=== PATIENT | male | born 1955 | race Caucasian/White ===

== ENCOUNTER → 2021-05-31 | Outpatient (CLI) | payer MEDICARE, BC ==
[2021-05-31 14:30] LABS: HCT 44.6 % (39.6-50.0); HGB 15.3 g/dL (13.0-17.0); MCHC 34.3 g/dL (32.0-37.0); MCV 96.1 fL (80.0-97.0); Mean Platelet Volume 12.1 fL (9.5-12.2); Platelet Count 217 X 10*3/uL (140-440); RBC 4.64 X 10*6/uL (4.40-5.60); RDW 12.4 % (11.5-14.5); WBC 7.05 X 10*3/uL (4.50-10.00)
[2021-05-31 15:38] LABS: ALT 34 U/L (10-49); AST 22 U/L (14-35); Carbon Dioxide 20.5 mmol/L (20.0-27.5); Chloride 104 mmol/L (96-109); Chol/HDL Ratio 5.01 Ratio; LDL Cholesterol,Calculated 147.8 mg/dL (0.0-131.0); Potassium 5.2 mmol/L (3.5-5.5); Sodium 138 mmol/L (135-145)
== END | disposition home or self-care (01) ==
LOC: LABWHC1 10:06
PROVIDERS: ATTEND Internal Medicine Cardiovascular Disease
DX: I48.11 Longstanding persistent atrial fibrillation (principal)
CPT/HCPCS: 36415; 80051; 80061; 84443; 84450; 84460; 85027

== ENCOUNTER 2021-06-12 06:11 | Day surgery (SDC) | payer BC, MEDICARE ==
[2021-06-09 08:53] VITALS: BMI 34.4
[~2021-06-12 06:11] MED LIST: ALPRAZolam 0.25 MG TAB PO PRN; ALPRAZolam 0.5 MG TAB PO PRN; ASPIRIN 325 MG TAB PO STA; ATORVASTATIN 80 MG TAB PO STA; HEPARIN SODIUM,PORCINE 10,000 UNIT in SODIUM CHLORIDE 0.9% 1,000 ML IRRIGATION PRN; HEPARIN SODIUM,PORCINE 2,500 UNIT in SODIUM CHLORIDE 0.9% 250 ML IRRIGATION PRN; NITROGLYCERIN SL TABS 0.4 MG TAB SUBLINGUAL PRN; SODIUM CHLORIDE 0.9% 1,000 ML in EMPTY BAG 1 BAG IV SCH
[2021-06-12] MEDS ORDERED: SODIUM CHLORIDE 0.9% 1,000 ML IV ONE (06:42)
[2021-06-12 06:57] VITALS: RESP 16; TEMP 98.6
[2021-06-12 07:18] LABS: Calcium 9.8 mg/dL (8.4-10.2); Potassium 4.7 mmol/L (3.5-5.1)
[2021-06-12] MEDS ORDERED: .fentaNYL (PF) 50 MCG/ML 2 ML AMP IV ONE (07:30)
[2021-06-12] MEDS ORDERED: MIDAZOLAM 2 MG/2 ML VIAL IV ONE (07:30)
[2021-06-12] MEDS ORDERED: LIDOCAINE 1% INJ 10MG/ML (20 ML MDV) SQ ONE (07:35)
[2021-06-12] MEDS ORDERED: VERAPAMIL SYRINGE (5 MG/10 ML) INTRAARTER ONE (07:36)
[2021-06-12] MEDS: HEPARIN SODIUM 1,000 UN/ML (10ML VL) IV ONE ×3 (07:39→08:12)
[2021-06-12] MEDS ORDERED: NITROGLYCERIN 1000MCG/10ML SYRINGE INTRACORON ONE (08:18)
[2021-06-12] MEDS ORDERED: IOPAMIDOL-370 125ML BTL INJ ONE (08:29)
[2021-06-12] MEDS ORDERED: IOPAMIDOL-370 100ML BTL INJ ONE (08:40)
[2021-06-12] MEDS ORDERED: BACLOFEN 10 MG TAB PO PRN (08:45)
[2021-06-12] MEDS ORDERED: HYDROcodone/APAP 7.5-325MG 1 EACH TAB PO PRN (08:45)
[2021-06-12] MEDS ORDERED: ATROPINE SULFATE 0.1 MG/ML 10ML SYRINGE IV PRN (08:46)
[2021-06-12] MEDS ORDERED: RX INFO: IV CONTRAST WAS GIVEN 1 EACH MISC MISCELLANE PRN (08:46)
[2021-06-12] MEDS ORDERED: NITROGLYCERIN SL TABS 0.4 MG TAB SUBLINGUAL PRN (08:46)
[2021-06-12] MEDS ORDERED: ZOLPIDEM 5 MG TAB PO PRN (08:46)
[2021-06-12] MEDS ORDERED: MAG HYDROX/AL HYDROX/SIMETH 30 ML CUP PO PRN (08:46)
[2021-06-12] MEDS ORDERED: CLOPIDOGREL 75 MG TAB PO ONE (08:47)
[2021-06-12] MEDS ORDERED: METOPROLOL SUCCINATE (ER) 50 MG TAB.ER.24H PO SCH (09:00)
[2021-06-12] MEDS ORDERED: NON FORMULARY DRUG (Potassium Gluconate [Potassium Gluconate Er] 99 MG Tablet) PO SCH (09:00)
[2021-06-12] MEDS ORDERED: MULTIVITAMINS, THERA 1 EACH TAB PO SCH (09:00)
[2021-06-12] MEDS ORDERED: ASPIRIN 81 MG PO SCH (09:00)
[2021-06-12] MEDS ORDERED: FLUoxetine HCL 20 MG CAP PO SCH (09:00)
[2021-06-12] MEDS ORDERED: NON FORMULARY DRUG (Magnesium [Magnesium] 200 MG Tablet) PO SCH (09:00)
[2021-06-12] MEDS ORDERED: SODIUM CHLORIDE 0.9% 1,000 ML IV SCH (09:00)
--- NOTE | 2021-06-12 10:15 | PTCA ---
PERCUTANEOUSTRANS CORORONARY ANGIOGRAPHY DATE OF SERVICE: 06/12/2021 PERFORMING PHYSICIAN: Chapincito Flores M.D. PROCEDURE PERFORMED: Stenting of the PLV branch of the RCA using a 2.5 x 15 mm Xience drug-eluting stent with an excellent angiographic result and reduction of stenosis from 90% to 0%. INDICATION: Cardiomyopathy in this 65-year-old gentleman who underwent a heart catheterization and was found to have critical disease involving the PLV branch of the RCA by Dr. Cordero. APPROACH: Right radial artery. COMPLICATIONS: None. LEVEL OF SEDATION: Moderate, with sedation length of 32 minutes. PROCEDURE DESCRIPTION: Please refer to the diagnostic heart catheterization that was performed by Dr. Cordero earlier today. Anticoagulation was initiated using heparin with continuous ACT monitoring throughout the procedure. Subsequently I did engage the RCA using JR4 guiding catheter. I did wire the RCA using a run-through wire. After that I did balloon angioplasty using a 2.0 x 12 mm balloon before I deployed a 2.5 x 15 mm Xience drug-eluting stent where the stent was positioned under fluoroscopic guidance and deployed under its nominal pressure. The following angiogram showed excellent angiographic results and the procedure was completed without any complication. POST-PROCEDURE MANAGEMENT: 1. Dual anti-platelet therapy. 2. Risk factor modifications. 3. Follow up with the patient. MMODL / IJN: [id number] /
[2021-06-12 12:00] VITALS: PULSE 70
[2021-06-12 16:14] VITALS: BP 128/72
[2021-06-12] MEDS ORDERED: RIVAROXABAN 15 MG TAB PO SCH (17:30)
[2021-06-12] MEDS ORDERED: ATORVASTATIN 80 MG TAB PO SCH (21:00)
[2021-06-13] MEDS ORDERED: CLOPIDOGREL 75 MG TAB PO SCH (09:00)
--- NOTE | 2021-06-20 15:52 | CC ---
CARDIAC CATHETERIZATION REPORT INDICATION: Cardiomyopathy. PROCEDURE NOTE: After obtaining informed consent, left heart catheterization and coronary angiogram were performed via the right radial artery using size 4 right Tristan and left Tristan catheters. Patient tolerated the procedure well without any obvious immediate complications. The right radial artery access was obtained using Seldinger technique with a micropuncture needle with standard precautions. Glidewire and catheters were floated into the ascending aorta under fluoroscopic guidance. Catheters were exchanged in the ascending aorta. Patient received 5 mg of verapamil and 4000 units of heparin. Procedure was completed uneventfully. FINDINGS: HEMODYNAMICS: Left ventricular end-diastolic pressure is 14 mm. There is no significant gradient across the aortic valve. LEFT VENTRICULOGRAM: Left ventriculogram was not performed. ANGIOGRAPHIC DATA: RIGHT CORONARY ARTERY: Right coronary artery is a large dominant vessel, shows a focal 80% to 90% stenosis involving the PLV branch. Circumflex coronary artery is a nondominant vessel and is free of significant disease. Left main appears calcified but is free of disease. Mid LAD shows an atherosclerotic plaque that is irregular and ulcerated, which is no more than 50%. CONCLUSIONS: Stenosis of 80% to 90% involving PLV branch; 50% stenosis involving mid LAD. PLAN: Patient will undergo angioplasty with stent placement of PLV. He received moderate conscious sedation. Total sedation time was 19 minutes. MMODL / IJN: [id number] /
== END 2021-06-12 14:30 | disposition home or self-care (01) ==
LOC: CATHCVL 06:11
PROVIDERS: ATTEND Internal Medicine Cardiovascular Disease
DX: I25.10 Atherosclerotic heart disease of native coronary artery without angina pectoris (principal); I10 Essential (primary) hypertension; Z20.822 Contact with and (suspected) exposure to COVID-19; Z82.49 Family history of ischemic heart disease and other diseases of the circulatory system; Z87.891 Personal history of nicotine dependence; Z79.01 Long term (current) use of anticoagulants; Z79.899 Other long term (current) drug therapy
CPT/HCPCS: 93458; 80048; 87635; C9600; C1887 ×3; C1894; C1725; C1769; C1874; J2250; J2001; J3010; J1644; Q9967 ×2

== ENCOUNTER → 2021-07-11 | Day surgery (SDC) | payer BC, MEDICARE ==
[2021-07-04 15:13] VITALS: BMI 34.4
[~2021-07-11] MED LIST changes: -ALPRAZolam 0.25 MG TAB PO PRN; -ALPRAZolam 0.5 MG TAB PO PRN; -ASPIRIN 325 MG TAB PO STA; -ATORVASTATIN 80 MG TAB PO STA; -HEPARIN SODIUM,PORCINE 10,000 UNIT in SODIUM CHLORIDE 0.9% 1,000 ML IRRIGATION PRN; -HEPARIN SODIUM,PORCINE 2,500 UNIT in SODIUM CHLORIDE 0.9% 250 ML IRRIGATION PRN; +LACTATED RINGERS 1,000 ML IV SCH; +LIDOCAINE 1% INJ 10MG/ML (20 ML MDV) ONE; -NITROGLYCERIN SL TABS 0.4 MG TAB SUBLINGUAL PRN; +PROPOFOL 10 MG/ML 20 ML VIAL IV ONE; +SODIUM CHLORIDE 0.9% 1,000 ML IV SCH; -SODIUM CHLORIDE 0.9% 1,000 ML in EMPTY BAG 1 BAG IV SCH
[2021-07-11 07:05] VITALS: TEMP 97.7
[2021-07-11 08:56] VITALS: RESP 16
--- NOTE | 2021-07-11 12:40 | ECHOT ---
TRANSESOPHAGEAL ECHOCARDIOGRAM PROCEDURES: 1. ANNAMARIA. 2. Cardioversion. INDICATION: 1. Persistent atrial fibrillation. PROCEDURE NOTE: After obtaining informed consent, transesophageal echocardiogram was performed in left lateral position using an Omni plane probe. Local and IV sedation were obtained by the plate grainer apprentice. The patient tolerated the procedure well without any obvious immediate complications. FINDINGS: 1. There is no intracardiac thrombus within the left atrial appendage, left atrium, right atrium, right ventricle or left ventricle. 2. Left atrium appears enlarged. 3. Right atrium and right ventricle appear mildly enlarged. 4. Interatrial septum: There is no evidence of [id number]-bk-bsfcf shunt by color-flow Doppler or vnuap-yh-bfrl shunt by agitated saline contrast study. 5. Mitral valve shows mild central mitral regurgitation. 6. Tricuspid valve shows mild tricuspid regurgitation. 7. Aorta is not aneurysmally dilated. 8. Left ventricle appears mildly enlarged, shows diffuse global hypokinesis with moderate to severe LV systolic dysfunction. CONCLUSIONS: 1. No intracardiac thrombus. 2. Mild mitral regurgitation. 3. Cardiomyopathy with moderate to severe LV dysfunction. PLAN: The patient will undergo cardioversion. MMODL / IJN: [id number] /
--- NOTE | 2021-07-11 13:01 | PCN ---
PROCEDURE NOTE CARDIOVERSION: INDICATION: Persistent atrial fibrillation. After making sure that the patient is adequately anticoagulated with Xarelto ensuring that there is no intracardiac thrombus with the transesophageal echo, the patient underwent electrical cardioversion with synchronized DC current. I made two attempts initially with 100 joules and subsequently with 150 joules. He converted to sinus rhythm and stayed in sinus rhythm. He will continue the Xarelto and I will review his medications and cut back on the AV clement blockers. MMDANIELLA / SHANAN: [id number] /
[2021-07-11 15:32] VITALS: BP 145/72; PULSE 42
== END ==
LOC: CATHCVL 06:10
PROVIDERS: ATTEND Internal Medicine Cardiovascular Disease
DX: I48.19 Other persistent atrial fibrillation (principal); I42.0 Dilated cardiomyopathy; I08.1 Rheumatic disorders of both mitral and tricuspid valves; I25.10 Atherosclerotic heart disease of native coronary artery without angina pectoris; I10 Essential (primary) hypertension; E78.2 Mixed hyperlipidemia; Z20.822 Contact with and (suspected) exposure to COVID-19; Z95.5 Presence of coronary angioplasty implant and graft; Z87.891 Personal history of nicotine dependence; M19.90 Unspecified osteoarthritis, unspecified site; Z82.49 Family history of ischemic heart disease and other diseases of the circulatory system; Z90.49 Acquired absence of other specified parts of digestive tract; Z88.8 Allergy status to other drugs, medicaments and biological substances; Z79.01 Long term (current) use of anticoagulants; Z79.02 Long term (current) use of antithrombotics/antiplatelets; Z79.899 Other long term (current) drug therapy
CPT/HCPCS: 93312; 93325; 92960; 87635; J2001; J2704; 93320

== ENCOUNTER → 2023-08-13 | Outpatient (CLI) | payer BC, MEDICARE ==
[2023-08-13 11:30] LABS: INR 1.1 (<1.2); Partial Thromboplastin Time 31.7 sec (22.0-30.0); Prothrombin Time 12.3 sec (10.0-12.5)
[2023-08-13 15:22] LABS: HCT 38.5 % (39.6-50.0); HGB 12.1 g/dL (13.0-17.0); MCH 30.3 pg (27.0-32.0); MCHC 31.4 g/dL (32.0-37.0); MCV 96.3 FL (80.0-97.0); Mean Platelet Volume 10.7 FL (9.5-12.2); NRBC Per 100 WBC 0 X 10*3/uL (0.00-0.01); Platelet Count 209 X 10*3/uL (140-440); RDW 15.8 % (11.5-14.5); WBC 6.72 X 10*3/uL (4.50-10.00)
[2023-08-13 15:45] LABS: ALT 52 U/L (10-49); AST 26 U/L (14-35); Alkaline Phosphatase 75 U/L (41-126); BUN/Creat Ratio 19.38 Ratio (12.00-20.00); Blood Urea Nitrogen 40.7 mg/dL (9.0-27.0); Calcium 9.2 mg/dL (8.7-10.3); Carbon Dioxide 22.4 mmol/L (21.6-31.8); Chloride 108 mmol/L (96-109); Globulin 2.5 g/dL (1.6-3.3); Glucose 99 mg/dL (70-110); Potassium 5.2 mmol/L (3.5-5.5); Sodium 140 mmol/L (135-145); Total Bilirubin 0.3 mg/dL (0.3-1.2); Total Protein 6.5 g/dL (6.2-8.2)
== END | disposition home or self-care (01) ==
LOC: LABPAT 10:39
PROVIDERS: ATTEND Orthopaedic Surgery
DX: Z01.812 Encounter for preprocedural laboratory examination (principal); Z22.322 Carrier or suspected carrier of Methicillin resistant Staphylococcus aureus; M17.12 Unilateral primary osteoarthritis, left knee
CPT/HCPCS: 80053; 85027; 85610; 85730; 87070

== ENCOUNTER 2023-09-10 07:43 | Day surgery (SDC) | payer BC, MEDICARE ==
[2023-09-04 08:47] VITALS: BMI 34.0
[~2023-09-10 07:43] MED LIST changes: +HYDROmorphone 0.5 MG/0.5 ML SYRINGE IVP PRN; -LACTATED RINGERS 1,000 ML IV SCH; +LIDOCAINE 1% (10MG/ML) FOR IV START INTRADERMA PRN; -LIDOCAINE 1% INJ 10MG/ML (20 ML MDV) ONE; -PROPOFOL 10 MG/ML 20 ML VIAL IV ONE; -SODIUM CHLORIDE 0.9% 1,000 ML IV SCH; +TRANEXAMIC 1,000 MG/100ML-NACL 1,000 MG in SALINE 1 100ML.BAG IVPB PRN
[2023-09-10] MEDS: LACTATED RINGERS 1,000 ML IV SCH ×2 (08:17→20:41)
[2023-09-10] MEDS: ACETAMINOPHEN TAB 500 MG TAB PO PRN (08:50)
[2023-09-10] MEDS: MELOXICAM 7.5 MG TAB PO PRN (08:51)
[2023-09-10] MEDS: GABAPENTIN 300 MG CAP PO PRN (08:51)
[2023-09-10] MEDS: ONDANSETRON 4 MG/2 ML VIAL IVP ONE (09:05)
[2023-09-10] MEDS: DEXAMETHASONE SOD PHOSPHATE 4 MG/ML 1 ML VIAL IV ONE (09:05)
[2023-09-10] MEDS: MIDAZOLAM 2 MG/2 ML VIAL IV PRN (09:06)
[2023-09-10] MEDS: fentaNYL (PF) 50 MCG/ML 2 ML AMP IVP ONE (09:07)
[2023-09-10] MEDS ORDERED: TRANEXAMIC 1,000 MG/100ML-NACL PREMIX BAG ONE (09:52)
[2023-09-10] MEDS ORDERED: MIDAZOLAM 2 MG/2 ML VIAL ONE (09:52)
[2023-09-10] MEDS ORDERED: PHENYLEPHRINE 10 MG/ML VIAL ONE (09:52)
[2023-09-10] MEDS ORDERED: fentaNYL (PF) 50 MCG/ML 2 ML AMP ONE (09:52)
[2023-09-10] MEDS ORDERED: ROPIVACAINE 5 MG/ML 30 ML VIAL ONE (09:52)
[2023-09-10] MEDS ORDERED: SODIUM CHLORIDE 0.9% (PF) 10 ML VIAL ONE (09:52)
[2023-09-10] MEDS ORDERED: LIDOCAINE 1% INJ 10MG/ML (20 ML MDV) ONE (09:52)
[2023-09-10] MEDS ORDERED: PROPOFOL 10 MG/ML 20 ML VIAL IV ONE (09:52)
[2023-09-10] MEDS: LACTATED RINGERS 1,000 ML IV ONE (10:34)
--- NOTE | 2023-09-10 11:06 | P.OP ---
Date of Procedure: 09/10/23 Preoperative Diagnosis: Severe osteoarthritis left knee Postoperative Diagnosis: Severe osteoarthritis left knee Procedure(s) Performed: Left total knee arthroplasty Implants: [employer]hew Journey II CR Oxinium cruciate retaining femoral component size 7, left [employer] Journey nonporous tibial baseplate size 6, left [employer] Journey II, XLPE Deep Dished articular insert, size 9 mm, Size 5- 6, left [employer] Journey Ade II resurfacing patellar component, oval, 35 mm All components were cemented using Palacos R bone cement The articulation is Oxinium on polyethylene Anesthesia: FARHEEN Surgeon: Chidi Dickens Machine Adjuster Helper #1: Latoya Agarwal Estimated Blood Loss (ml): 40 Pathology: none sent Condition: stable Disposition: PACU Indications for Procedure: The patient's knee is end-stage, and conservative management has failed. The operation of knee replacement has been discussed at length in the office, as well as potential risks and complications. These are inclusive of, but not limited to: Infection, bleeding, scarring, discomfort, stiffness, blood vessel and nerve damage, need for further surgery, failure to relieve symptoms, persistence, recurrence, or worsening of problems, loosening, dislocation, wear, blood clot, pulmonary embolism, , gait dysfunction, stiffness, and other risks as discussed in the office. Patient elects to proceed and the consent form has been signed. Operative Findings: The operative findings are consistent with severe osteoarthritis of the left knee Description of Procedure: The patient was seen in the preoperative area, the consent was reviewed and the operative site was marked with a skin marker. The patient verified the procedure and the operative site. An adductor canal pain catheter and an iPACK block were placed by anesthesia in the preoperative area. The patient was then brought to the operating room and positioned on the operating room table in the supine position. Preoperative antibiotics and a gram of tranexamic acid were given intravenously. A general anesthetic was administered by the anesthesia department. Care was taken to make sure that all pressure points were adequately padded. A tourniquet was placed on the upper thigh and the lower extremity was prepped with ChloraPrep and draped in usual sterile fashion. A universal time-out was then performed which confirmed the patient's name, surgical site, ALLERGIES, and consent. The lower extremity was then exsanguinated and tourniquet was inflated to 250 mmHg. A standard anterior midline approach to the knee was performed. The skin and subcutaneous tissue were sharply dissected down to the patellar tendon. A medial parapatellar arthrotomy was then performed. The knee was then extended, the patellar was everted, and the knee was flexed. The infra-patellar fat pad was removed in order to enhance exposure. The anterior horns of both menisci were excised, and a release was performed to the posterior medial aspect of the knee. On gross visual inspection, there was complete loss of articular cartilage in the medial and patellofemoral joint spaces. There was also significant cartilage damage in the lateral compartment. There were multiple periarticular osteophytes globally about the knee which were then removed with a Ronguer. The femoral canal was then opened with the 9.5 mm intramedullary drill. The 8 mm intramedullary sarah was then inserted into the femoral canal with the distal femoral cutting guide set for 5 of valgus. The distal femoral cutting block was then pinned in place. The intramedullary sarah was then removed, and the distal femur was then cut. The cutting block was then removed and the cut was checked for symmetry. The resected bone was then measured to confirm the appropriate distal femoral resection. Next, the sizing guide was then placed and set for 3 external rotation based off of the epicondylar axis and [place]'s line. Pins were then placed and the drill holes, and the femur was sized with the sizing stylus. The pins were then removed, and the sizing guide was then removed. The spikes of the appropriate size femoral block was then placed into the predrilled holes, and malleted into place. Two 45 mm pins were then placed into the fixation holes on the cutting block. An robert wing was then used to ensure there would be no notching with the anterior cut. The anterior condyles were cut without notching. The anterior chord cut was then performed, followed by the posterior cut, posterior chamfer cut, and the anterior chamfer cut. The collateral ligaments were protected during the entire process. The cutting block was then removed. Any remaining bone and osteophytes were removed from the femur with a Ronguer. Attention was then directed to the tibia. The remaining ACL was removed with a Ronguer, and the tibia was then gently subluxed forward with a large bent knee retractor. Any remaining menisci were excised. The posterior lateral corner was cauterized in order to coagulate the lateral geniculate artery. The extra medullary tibial cutting guide was then placed, set for the appropriate rotation, slope, and depth of resection. The proximal tibia cutting guide was then pinned in place. Proximal tibia was then cut and sized. A curved osteotome was then used to remove any posterior osteophytes from the distal femur. The femoral trial was placed. A narrow saw blade was then used to remove the anterior intracondylar femoral bone. The CR notch trial was then placed. The tibial trial was placed with the appropriate-sized insert. The knee was able to fully extend and flex to 130 and was stable throughout all range of motion. The knee was then extended and the patella was everted. Patella was then measured, and then using an osteotomy guide, the patella was cut at the appropriate level. The patellar component was sized. The patellar drill guide was placed and the patella was drilled. The patella trial was then placed. The knee was then taken through range of motion with the patella trial and the patella tracked normally using the no thumbs technique. The patella trial was then removed. The knee was then flexed and lug holes were drilled through the femoral trial and the femoral trial was then removed. The tibial was then re- exposed, and the tibial broach guide was then pinned in place after it was set for the appropriate rotation to allow for the most coverage without overhang. The tibia was then reamed and broached. The femoral canal was plugged with autologous bone. The cut surfaces of bone were then irrigated with pulsatile lavage. The knee was also irrigated with Irrisept solution. The components were then opened, the cement was mixed. Cement was placed on the backside of the femoral, tibial, and patellar components. Cement was then applied to the tibial surface and pressurized into the surface using finger pressurization technique. The tibial component was then applied and excess cement was removed after it was impacted securely noted to be flush with the cut surface. In similar fashion, the cement was applied to the cut femoral surface, pressuriz ed and using finger pressurization the component was impacted in place. Excess cement was removed. The polyethylene spacer was then implanted and locked into position. Patellar component was then applied in a similar technique and the patellar clamp was used to hold patella in place while the cement hardened. The knee was held in full extension while the cement hardened. Once the cement had fully hardened, the knee was reinspected. Any other cement extrusion was removed the final range of motion testing showed range of motion from 0-130 with excellent stability, both medial and laterally and appropriate alignment of the leg. Patella tracked normally. After the cemented hardened, the tourniquet was released and hemostasis was obtained. A second gram of transexamic acid was given intravenously. The knee was again irrigated. The knee was again taken through range of motion and found to be stable throughout all range of motion of 0-130, and the patella tracked normally. The fascia was then closed with 0 Vicryl followed by #2 strata fix suture. The subcutaneous tissue was closed with 3-0 Vicryl and 3-0 strata fix. Exofin glue was used for the skin and placed with the knee in flexion. After the glue had dried, and Optafoam silver impregnated dressing was applied. A lightly compressive dressing was applied using web roll and Umer wrap. Patient was then transferred to the stretcher and taken to recovery room in stable condition. Sponge and needle counts were correct. The accounts payable assistant THIAGO Lester was required due the complexity surgery and the need for a skilled certified medical assistant. She assisted in positioning, draping, retraction, and closure of the wound.
[2023-09-10] MEDS ORDERED: HYDROmorphone 0.5 MG/0.5 ML SYRINGE IVP PRN ×3 (11:42)
[2023-09-10] MEDS ORDERED: ONDANSETRON 4 MG/2 ML VIAL IVP PRN (11:42)
[2023-09-10] MEDS ORDERED: NALOXONE 0.4 MG/ML 1 ML VIAL IV PRN (11:42)
[2023-09-10] MEDS ORDERED: HYDROcodone/APAP 7.5-325MG 1 EACH TAB PO PRN ×2 (11:44)
[2023-09-10] MEDS: ROPIVACAINE 1,100 MG, SODIUM CHLORIDE 0.9% 500 ML 330 ML, EMPTY PAIN BALL 1 EACH MISCELLANE PRN (12:09)
--- NOTE | 2023-09-10 12:40 | XR ---
EXAMINATION TYPE: XR knee limited LT DATE OF EXAM: 09/10/2023 CLINICAL HISTORY: Postoperative evaluation Two views of the left knee are submitted. Identified are changes of total knee arthroplasty with fem oral and tibial components appearing well seated. Postsurgical soft tissue changes are noted. Align ment is anatomic.
[2023-09-10] MEDS: HYDROcodone/APAP 10-325MG 1 EACH TAB PO ONE (12:54)
--- NOTE | 2023-09-10 13:08 | P.ANPRN ---
Procedure Note - Anesthesia - Nerve Block Performed Left Adductor Canal Infusion Time Out Performed: Yes (905) Date of Procedure: 09/10/23 Location of Patient: PreOp Indication: Acute Post-Operative Pain, Dx/Pain Location (Left knee), Requested by Surgeon Specifically requested for management of pain by : Chidi Dickens Sedation Type: Sedate with meaningful contact maintained Preparation: Sterile Prep, Sterile Dressing Position: Supine Catheter: Indwelling Needle Types: Pajunk Needle Gauge: 18 Ultrasound used to visualize needle placement: Yes Ultrasound used to observe medication spread: Yes Injectate: 0.5% Ropivacaine (see comment for volume) (20 cc +10 mL of normal saline) Blood Aspirated: No Pain Paresthesia on Injection Noted: No Resistance on Injection: Normal Image Stored and Saved: Yes Events: Uneventful and Well Tolerated Left iPack Single Time Out Performed: Yes Date of Procedure: 09/10/23 Location of Patient: PreOp Indication: Acute Post-Operative Pain, Dx/Pain Location (Left knee), Requested by Surgeon Specifically requested for management of pain by DrTip: Chidi Dickens Sedation Type: Sedate with meaningful contact maintained Preparation: Sterile Prep Position: Right Lateral Catheter: None Needle Types: Pajunk Needle Gauge: 21 Ultrasound used to visualize needle placement: Yes Ultrasound used to observe medication spread: Yes Injectate: 0.5% Ropivacaine (see comment for volume) (20 cc +10 mL of normal saline) Blood Aspirated: No Pain Paresthesia on Injection Noted: No Resistance on Injection: Normal Image Stored and Saved: Yes Events: Uneventful and Well Tolerated
[2023-09-10] MEDS: BACLOFEN 10 MG TAB PO STA (14:45)
[2023-09-10] MEDS: SODIUM CHLORIDE 0.9% 1,000 ML IV SCH (18:18)
[2023-09-10] MEDS: HYDROcodone/APAP 10-325MG 1 EACH TAB PO PRN (18:36)
--- NOTE | 2023-09-10 20:10 | P.CONS ---
History of Present Illness - Reason for Consult Consult date: 09/10/23 Medical management Requesting physician: Sina Taylor - Chief Complaint Left knee surgery - History of Present Illness This is a pleasant 67-year-old patient who follows with Dr. Isaac. Patient is undergone left total knee arthroplasty. Pain controlled. Laying in bed. No nausea vomiting. Chronic stable medical conditions include atrial fibrillation, hyperlipidemia, osteoarthritis, diverticulosis, anxiety depression for which he takes Prozac, CAD with a prior history of coronary bypass Review of systems: GEN.: None EYES: None HEENT: None NECK: None RESPIRATORY: None CARDIOVASCULAR: None GASTROINTESTINAL: None GENITOURINARY: None MUSCULOSKELETAL: Joint pains LYMPHATICS: None HEMATOLOGICAL: None PSYCHIATRY: None NEUROLOGICAL: None Social history: Patient stopped smoking over 30 years ago.'s started smoking age of 20. Alcohol occasionally. Lives with his . Physical examination: VITAL SIGNS: 98.5, 60, 18, 106 x 59, 96% room air GENERAL: BMI 35, reclining bed awake comfortable. EYES: Pupils equal. Conjunctiva aiden l. HEENT: External appearance of nose and ears normal, oral cavity grossly normal. NECK: JVD not raised; masses not palpable. HEART: First and second heart sounds are normal; no edema. LUNGS: Respiratory rate normal; clear to auscultation. ABDOMEN: Soft, nontender, liver spleen not palpable, no masses palpable. PSYCH: Alert and oriented x3; mood and affect aiden l. MUSCULOSKELETAL:No Clubbing/cyanosis;muscles-grossly intact. OA. Dressing over the left knee NEUROLOGICAL: Cranial nerves grossly intact; no facial asymmetry, power and sensation grossly intact. LYMPHATICS: No lymph nodes palpable in the axilla and neck INVESTIGATIONS, reviewed in the clinical context: August 13, 2023: White count 6.7 hemoglobin 12.1 platelets 209 sodium 140 potassium 5.2 BUN 14.7 creatinine 2.1 Assessment plan: -Left total knee arthroplasty Pain controlled. Resume Xarelto when okay with orthopedics -Paroxysmal atrial fibrillation, currently in sinus rhythm Xarelto. Toprol-XL. Amiodarone -Muscle spasms Baclofen as needed -Anxiety not otherwise specified Prozac 20 mg a day -CAD with a prior history of coronary bypass Aspirin. Toprol-XL. -Obesity BMI 35 Weight loss measures -Suspect chronic kidney disease stage III with nephrosclerosis Stop Aleve. -Full code Home medications resumed. No NSAIDs. Except for aspirin. Repeat labs in the morning. Thank Dr. Dickens Past Medical History Past Medical History: Atrial Fibrillation, Cancer, Hyperlipidemia, Osteoa rthritis (OA) Additional Past Medical History / Comment(s): diverticulosis, arthritis in back/pinched nerves, "borderline cholesterol", skin cancer History of Any Multi-Drug Resistant Organisms: None Reported Past Surgical History: Appendectomy, Back Surgery, Bowel Resection, Cholecystectomy, Coronary Bypass/CABG, Heart Catheterization With Stent, Orthopedic Surgery Additional Past Surgical History / Comment(s): bowel resection for "pus pocket", courtney knee arthroscopy, one cardiac stent, BILAT CATARACTS REMOVED WITH LENS IMPLANTS, COLONOSCOPY, EGD, BACK SX X 2 Past Anesthesia/Blood Transfusion Reactions: No Reported Reaction Additional Past Anesthesia/Blood Transfusion Reaction / Comm: "does not take much anesthesia" Date of Last Stent Placement:: 06/12/21 Past Psychological History: No Psychological Hx Reported Additional Psychological History / Comment(s): pt states some stress as sister last month from [employer]. states he had not been around her. Smoking Status: Former smoker Past Alcohol Use History: Occasional Additional Past Alcohol Use History / Comment(s): quit smoking over 30 yrs ago, started smoking age 20 Past Drug Use History: None Reported - Past Family History Mother Family Medical History: No Reported History Medications and Allergies Home Medications Medication Instructions Recorded Confirmed Type Baclofen 10 mg PO TID PRN 06/09/21 09/10/23 History FLUoxetine HCL [PROzac] 20 mg PO DAILY 06/09/21 09/10/23 History Metoprolol Succinate [Toprol XL] 50 mg PO DAILY 06/09/21 09/10/23 History Aspirin 81 mg PO DAILY #90 tab 06/12/21 09/10/23 Rx Amiodarone [Cordarone] 200 mg PO DAILY 09/04/23 09/10/23 History HYDROcodone/APAP 10-325MG [[place] 1 tab PO Q6HR PRN 09/04/23 09/10/23 History 10-325] Naproxen Sodium [Aleve] 220 mg PO TID PRN 09/04/23 09/10/23 History Rivaroxaban [Xarelto] 15 mg PO DAILY 09/04/23 09/10/23 History Sacubitril/Valsartan [Entresto 49 0.5 each PO BID 09/04/23 09/10/23 History mg-51 mg Tablet] Ondansetron Odt [Zofran Odt] 1 tab PO Q8HR PRN #10 tab 09/10/23 Rx Sennosides [Senokot] 2 tab PO DAILY PRN #60 tablet 09/10/23 Rx Allergies Allergy/AdvReac Type Severity Reaction Status Date / Time No Known Allergies Allergy Verified 09/10/23 08:30 Physical Exam Vitals: Vital Signs Temp Pulse Pulse Resp BP BP Pulse Ox 09/10/23 16:30 98.5 F 60 18 106/59 96 09/10/23 14:50 66 16 106/48 92 L 09/10/23 13:23 60 14 110/63 96 09/10/23 13:08 60 14 108/60 95 09/10/23 12:53 62 12 117/67 94 L 09/10/23 12:38 60 14 124/69 96 09/10/23 12:27 60 16 130/69 98 09/10/23 12:12 60 16 121/66 97 09/10/23 11:56 60 16 134/79 97 09/10/23 11:41 97.7 F 70 16 130/75 95 09/10/23 09:28 60 16 140/60 97 09/10/23 08:22 97.8 F 65 18 168/77 99 Intake and Output 09/10/23 09/10/23 09/10/23 06:59 14:59 22:59 Intake Total 2049 Output Total 40 2009 Intake: IV 2049 Output: Estimated Blood Loss 40 Other: # Voids 0 Weight 107.4 kg 107.4 kg
[2023-09-10] MEDS: SENNOSIDES-DOCUSATE SODIUM 1 EACH TAB PO SCH (20:36)
[2023-09-10] MEDS: SACUBITRIL/VALSARTAN 49 MG-51 MG TABLET PO SCH (20:36)
[2023-09-10] MEDS: BACLOFEN 10 MG TAB PO PRN (20:38)
[2023-09-11 01:02] VITALS: PULSE 59
[2023-09-11 07:45] LABS: African American GFR (CKD) 48 (>60 ml/min/1.73 sqM); Anion Gap 6 mmol/L; Blood Urea Nitrogen 31 mg/dL (9-20); Calcium 8.7 mg/dL (8.4-10.2); Carbon Dioxide 22 mmol/L (22-30); Chloride 109 mmol/L (98-107); Glucose 117 mg/dL (74-99); Non-African American GFR(CKD) 41 (>60 ml/min/1.73 sqM); Potassium 4.7 mmol/L (3.5-5.1); Sodium 137 mmol/L (137-145)
[2023-09-11 09:17] VITALS: BP 109/48; RESP 19; TEMP 98.1
[2023-09-11] MEDS: METOPROLOL SUCCINATE (ER) 50 MG TAB.ER.24H PO SCH (09:59)
[2023-09-11] MEDS: ASPIRIN 81 MG PO SCH (09:59)
[2023-09-11] MEDS: RIVAROXABAN 15 MG TAB PO SCH (09:59)
[2023-09-11] MEDS: AMIODARONE 200 MG TAB PO SCH (09:59)
[2023-09-11] MEDS: FLUoxetine HCL 20 MG CAP PO SCH (09:59)
--- NOTE | 2023-09-11 10:16 | P.DS ---
Providers Date of admission: 09/10/2023 Expected date of discharge: 09/11/23 Attending physician: Chidi Dickens Consults: 09/10/23 15:58 Consult Physician Routine Consulting Provider: Edward Post Consult Reason/Comments: medical management Do you want consulting provider notified?: Yes Primary care physician: Sina Taylor - Discharge Diagnosis(es) (1) Osteoarthritis of left knee Current Visit: Yes Status: Acute (2) Status post total left knee replacement Current Visit: Yes Status: Acute (3) Heart disease Current Visit: Yes Status: Acute (4) Current use of laborer marine terminal anticoagulation Current Visit: Yes Status: Acute Hospital Course: This is a pleasant 67-year-old male who presented with severe left knee osteoarthritis who failed outpatient conservative therapy. He was admitted for a left total knee arthroplasty performed by Dr. Chidi Dickens. He was having some weakness with physical therapy yesterday with his left lower extremity so his discharge was held. He feels his weakness has improved. He is able to stand at the bedside for me today and ambulate a few steps with the assistance of a walker. He does have a walker at home. He feels his pain is much better controlled. He does have some pain at his left thigh. His calf is soft nontender. He does not have any pain with palpation of the left thigh. The dressing over the left knee is clean, dry, and intact. He feels he is ready for discharge home today. The patient tolerated the procedure well and did well postoperatively. Condition on day of discharge stable. Patient will be discharged home. Patient was cleared preoperatively for surgery by Dr. Taylor. Patient currently denies any nausea, vomiting, fever, or chills. Patient is eating and voiding freely without difficulty. Patient may shower Optifoam dressing intact. Patient may remove Optifoam dressing in 7 days and shower wi thout a dressing at that time. Patient should refrain from driving until at least after their first follow-up appointment in the office. Weight-bear as tolerated on left lower extremity with the assistance of a walker. Utilize CPM 5 to 6 hours daily as tolerated. Recommend use of compression stockings daily until follow-up appointment to help prevent swelling and blood clots. Compression stocks and may be removed at night before sleeping. Patient may continue with Xarelto and aspirin as previously prescribed effective today, 09/11/2023. He will continue with pain medications as prescribed through his primary care provider. On-Q pain pump to be managed by anesthesia. Physical Exam Total Knee Arthroplasty: Status post surgical day number 1 Patient is awake, alert, and oriented 3 Vital signs stable Good chest excursion with deep inspiration and expiration No signs or symptoms of DVT; no calf pain Dressing of the left knee is clean, dry, and intact; no erythema, purulence, or signs of infection Patient has full foot and ankle motion without difficulty bilateral lower extremities Dorsiflexion, plantar flexion, and extensor hallucis longus positive sustained bilaterally Neurovascular status left lower extremity intact Patient is able to stand at the bedside independently Patient is able to ambulate at the bedside with the assistance of a walker Procedures: Left total knee arthroplasty Patient Condition at Discharge: Stable Plan - Discharge Summary Discharge Rx Participant: No New Discharge Prescriptions: New Sennosides [Senokot] 2 tab PO DAILY PRN #60 tablet PRN Reason: Constipation Ondansetron Odt [Zofran Odt] 1 tab PO Q8HR PRN #10 tab PRN Reason: Nausea No Action FLUoxetine HCL [PROzac] 20 mg PO DAILY Baclofen 10 mg PO TID PRN PRN Reason: Pain Metoprolol Succinate [Toprol XL] 50 mg PO DAILY Amiodarone [Cordarone] 200 mg PO DAILY Rivaroxaban [Xarelto] 15 mg PO DAILY Aspirin 81 mg PO DAILY #90 tab Naproxen Sodium [Aleve] 220 mg PO TID PRN PRN Reason: Pain HYDROcodone/APAP 10-325MG [[place] 10-325] 1 tab PO Q6HR PRN PRN Reason: Pain Sacubitril/Valsartan [Entresto 49 mg-51 mg Tablet] 0.5 each PO BID Discharge Medication List Baclofen 10 mg PO TID PRN 06/09/21 [History] FLUoxetine HCL [PROzac] 20 mg PO DAILY 06/09/21 [History] Metoprolol Succinate [Toprol XL] 50 mg PO DAILY 06/09/21 [History] Aspirin 81 mg PO DAILY #90 tab 06/12/21 [Rx] Amiodarone [Cordarone] 200 mg PO DAILY 09/04/23 [History] HYDROcodone/APAP 10-325MG [[place] 10-325] 1 tab PO Q6HR PRN 09/04/23 [History] Naproxen Sodium [Aleve] 220 mg PO TID PRN 09/04/23 [History] Rivaroxaban [Xarelto] 15 mg PO DAILY 09/04/23 [History] Sacubitril/Valsartan [Entresto 49 mg-51 mg Tablet] 0.5 each PO BID 09/04/23 [History] Ondansetron Odt [Zofran Odt] 1 tab PO Q8HR PRN #10 tab 09/10/23 [Rx] Sennosides [Senokot] 2 tab PO DAILY PRN #60 tablet 09/10/23 [Rx] Follow up Appointment(s)/Referral(s): [facility],Equipment [NON-STAFF] - As Needed (*Please call [facility] once home to arrange delivery of the Continous Passive Motion (CPM) machine. ) [facility] [NON-STAFF] - 1-2 Days ([facility] will call you to schedule your in home physical therapy visits. ) Chidi Dickens DO [Doctor of Osteopathic Medicine] - 2 Weeks Patient Instructions/Handouts: *Sur[facility] - On-Q Pain Pump Discharge Instructions, *[facility] - (Anesthesia) Discharge Instructions Outpatient Surgery, How to Use an Incentive Spirometer (DC), Knee Replacement (DC) Activity/Diet/Wound Care/Special Instructions: Weightbearing as tolerated with a walker. CPM 5-6h daily as tolerated. Leave dressing intact. Dressing may be removed by home care nurse or by patient in 7 days. Then change dressing twice daily until follow up. May shower with initial dressing intact and after removal. If dressing become saturated, please remove. Recommend use of compression stockings daily until follow up to help prevent swelling and blood clots. May remove at night before sleeping. Please resume Xarelto and aspirin on 09/11/2023. Pain medicine per PCP. Please follow up with [facility] and call with any questions or concerns, . Discharge Disposition: HOME WITH HOME HEALTH SERVICES
--- NOTE | 2023-09-11 10:40 | P.PN ---
Progress Note - Text Progress Note Date: 09/11/23 Postoperative day # 1 status post total knee arthroplasty, on adductor canal perineural catheter placed for postoperative analgesia. Ropivacaine 0.2% 8 mL per hour through ON-Q pump continuous infusion. Pain is well controlled. On visual analog scale 1/10 Patient is taking PRN oral pain medications. Catheter site: Looks Ok. There is no erythema or tenderness. Continue with the current pain management plan and will follow.
[2023-09-11 11:38] LABS: Basophils # (A) 0 X 10*3/uL (0.00-0.10); Basophils % (A) 0 %; Eosinophils # (A) 0.01 X 10*3/uL (0.04-0.35); Eosinophils % (A) 0.1 %; HCT 32.8 % (39.6-50.0); HGB 10.2 g/dL (13.0-17.0); Lymphocytes # (A) 1.15 X 10*3/uL (0.90-5.00); Lymphocytes % (A) 10.1 %; MCH 30.1 pg (27.0-32.0); MCHC 31.1 g/dL (32.0-37.0); MCV 96.8 FL (80.0-97.0); Mean Platelet Volume 10.7 FL (9.5-12.2); Monocytes # (A) 1.13 X 10*3/uL (0.20-1.00); NRBC Per 100 WBC 0 X 10*3/uL (0.00-0.01); Neutrophils # (A) 9.01 X 10*3/uL (1.80-7.70); Neutrophils % (A) 79.4 %; Platelet Count 219 X 10*3/uL (140-440); RBC 3.39 X 10*6/uL (4.40-5.60); RDW 13.6 % (11.5-14.5); WBC 11.35 X 10*3/uL (4.50-10.00)
--- NOTE | 2023-09-11 19:18 | P.PN ---
Progress Note - Text Progress Note Date: 09/11/23 - Chief Complaint Left knee surgery - History of Present Illness This is a pleasant 67-year-old patient who follows with Dr. Isaac. Patient is undergone left total knee arthroplasty. Pain controlled. Laying in bed. No nausea vomiting. Chronic stable medical conditions include atrial fibrillation, hyperlipidemia, osteoarthritis, diverticulosis, anxiety depression for which he takes Prozac, CAD with a prior history of coronary bypass September 10: Doing much better. Some pain at the operative site. Tolerated diet. No chest pain or shortness of breath. Did work with therapy. Patient told to follow-up with nephrology because of abnormal creatinine. Patient stopped taking NSAIDs reminded him to do the same. Medications reviewed Social history: Patient stopped smoking over 30 years ago.'s started smoking age of 20. Alcohol occasionally. Lives with his . Physical examination: VITAL SIGNS: 98, 59, 19, 109 x 48, 93% room air GENERAL: Sitting at the edge of the bed, comfortable. EYES: Pupils equal. Conjunctiva aiden l. HEENT: External appearance of nose and ears normal, oral cavity grossly normal. NECK: JVD not raised; masses not palpable. HEART: First and second heart sounds are normal; no edema. LUNGS: Respiratory rate normal; clear to auscultation. ABDOMEN: Soft, nontender, liver spleen not palpable, no masses palpable. PSYCH: Alert and oriented x3; mood and affect aiden l. MUSCULOSKELETAL:No Clubbing/cyanosis;muscles-grossly intact. OA. Dressing over the left knee INVESTIGATIONS, reviewed in the clinical context: September 10: White count 1.3 hemoglobin 10.2 platelets 219 potassium 4.7 BUN 31 creatinine 1.69 August 13, 2023: White count 6.7 hemoglobin 12.1 platelets 209 sodium 140 potassium 5.2 BUN 14.7 creatinine 2.1 Assessment plan: -Left total knee arthroplasty Pain controlled. Resume Xarelto when okay with orthopedics -Paroxysmal atrial fibrillation, currently in sinus rhythm Xarelto. Toprol-XL. Amiodarone -Muscle spasms Baclofen as needed -Acute postprocedure blood loss anemia, expected from surgery Ferrous sulfate 325 twice daily -Anxiety not otherwise specified Prozac 20 mg a day -CAD with a prior history of coronary bypass Aspirin. Toprol-XL. -Obesity BMI 35 Weight loss measures -chronic kidney disease stage III with nephrosclerosis No NSAIDs. Patient advised Follow-up with Dr. Rojo/nephrology outpatient -Full code Discussed with patient. Questions answered Thank Dr. Dickens Past Medical History Past Medical History: Atrial Fibrillation, Cancer, Hyperlipidemia, Osteoarthritis (OA) Additional Past Medical History / Comment(s): diverticulosis, arthritis in back/pinched nerves, "borderline cholesterol", skin cancer History of Any Multi-Drug Resistant Organisms: None Reported Past Surgical History: Appendectomy, Back Surgery, Bowel Resection, Cholecystectomy, Coronary Bypass/CABG, Heart Catheterization With Stent, Orthopedic Surgery Additional Past Surgical History / Comment(s): bowel resection for "pus pocket", courtney knee arthroscopy, one cardiac stent, BILAT CATARACTS REMOVED WITH LENS IMPLANTS, COLONOSCOPY, EGD, BACK SX X 2 Past Anesthesia/Blood Transfusion Reactions: No Reported Reaction Additional Past Anesthesia/Blood Transfusion Reaction / Comm: "does not take much anesthesia" Date of Last Stent Placement:: 06/12/21 Past Psychological History: No Psychological Hx Reported Additional Psychological History / Comment(s): pt states some stress as sister last month from [place]. states he had not been around her. Smoking Status: Former smoker Past Alcohol Use History: Occasional Additional Past Alcohol Use History / Comment(s): quit smoking over 30 yrs ago, started smoking age 20 Past Drug Use History: None Reported
== END 2023-09-11 11:54 | disposition home health service (06) ==
LOC: OR 07:43 → 4SSUR 11:35 → OR 09-11 11:54
PROVIDERS: ATTEND Orthopaedic Surgery
DX: M17.12 Unilateral primary osteoarthritis, left knee (principal); M25.762 Osteophyte, left knee; G89.18 Other acute postprocedural pain; F10.90 Alcohol use, unspecified, uncomplicated; I51.9 Heart disease, unspecified; M21.161 Varus deformity, not elsewhere classified, right knee; M21.162 Varus deformity, not elsewhere classified, left knee; Z79.01 Long term (current) use of anticoagulants; Z79.899 Other long term (current) drug therapy; Z98.890 Other specified postprocedural states
CPT/HCPCS: 97530; 97162; 64999; 64448; 80048; 85025; 73560; 27447; C1713; C1776; C1751; J2250; J1100; J0690; J2405; J3010; J2795

== ENCOUNTER → 2023-10-25 | Outpatient (CLI) | payer BC, MEDICARE ==
[2023-10-25 11:42] LABS: INR 1.2 (<1.2); Prothrombin Time 12.8 sec (10.0-12.5)
[2023-10-25 16:31] LABS: HCT 36.7 % (39.6-50.0); HGB 11.2 g/dL (13.0-17.0); MCHC 30.5 g/dL (32.0-37.0); MCV 98.4 FL (80.0-97.0); Mean Platelet Volume 11.7 FL (9.5-12.2); NRBC Per 100 WBC 0 X 10*3/uL (0.00-0.01); Platelet Count 234 X 10*3/uL (140-440); RBC 3.73 X 10*6/uL (4.40-5.60); RDW 14.1 % (11.5-14.5); WBC 9.41 X 10*3/uL (4.50-10.00)
[2023-10-25 16:33] LABS: ALT 25 U/L (10-49); AST 22 U/L (14-35); Albumin 4.2 g/dL (3.8-4.9); Albumin/Globulin Ratio 1.62 Ratio (1.60-3.17); Alkaline Phosphatase 72 U/L (41-126); BUN/Creat Ratio 17.82 Ratio (12.00-20.00); Blood Urea Nitrogen 30.3 mg/dL (9.0-27.0); Calcium 9.7 mg/dL (8.7-10.3); Carbon Dioxide 20.9 mmol/L (21.6-31.8); Chloride 108 mmol/L (96-109); Globulin 2.6 g/dL (1.6-3.3); Glucose 95 mg/dL (70-110); Potassium 4.5 mmol/L (3.5-5.5); Sodium 143 mmol/L (135-145); Total Bilirubin 0.4 mg/dL (0.3-1.2); Total Protein 6.8 g/dL (6.2-8.2)
== END | disposition home or self-care (01) ==
LOC: LABPAT 10:07
PROVIDERS: ATTEND Orthopaedic Surgery
DX: Z01.818 Encounter for other preprocedural examination (principal); M17.11 Unilateral primary osteoarthritis, right knee; I44.5 Left posterior fascicular block; R94.31 Abnormal electrocardiogram [ECG] [EKG]; Z22.322 Carrier or suspected carrier of Methicillin resistant Staphylococcus aureus; Z95.0 Presence of cardiac pacemaker
CPT/HCPCS: 36415; 80053; 85027; 85610; 85730; 87070; 93005

== ENCOUNTER 2023-11-19 05:34 | Day surgery (SDC) | payer BC, MEDICARE ==
[2023-11-13 16:01] VITALS: BMI 34.8
[~2023-11-19 05:34] MED LIST changes: -HYDROmorphone 0.5 MG/0.5 ML SYRINGE IVP PRN; -LIDOCAINE 1% (10MG/ML) FOR IV START INTRADERMA PRN
[2023-11-19] MEDS ORDERED: ONDANSETRON 4 MG/2 ML VIAL IVP ONE (05:38)
[2023-11-19] MEDS ORDERED: LIDOCAINE 1% (10MG/ML) FOR IV START INTRADERMA PRN (05:38)
[2023-11-19] MEDS ORDERED: DEXAMETHASONE SOD PHOSPHATE 4 MG/ML 1 ML VIAL IV ONE (05:38)
[2023-11-19] MEDS: LACTATED RINGERS 1,000 ML IV SCH (05:57)
[2023-11-19] MEDS: ACETAMINOPHEN TAB 500 MG TAB PO PRN (06:08)
[2023-11-19] MEDS: GABAPENTIN 300 MG CAP PO PRN (06:08)
[2023-11-19] MEDS: MELOXICAM 7.5 MG TAB PO PRN (06:08)
[2023-11-19] MEDS: MIDAZOLAM 2 MG/2 ML VIAL IVP ONE (06:33)
[2023-11-19 06:46] VITALS: PULSE 60
[2023-11-19] MEDS ORDERED: ROCURONIUM 10 MG/ML (5 ML VIAL) IV ONE (06:52)
[2023-11-19] MEDS ORDERED: PHENYLEPHRINE 10 MG/ML VIAL ONE (06:52)
[2023-11-19] MEDS ORDERED: TRANEXAMIC 1,000 MG/100ML-NACL PREMIX BAG ONE (06:52)
[2023-11-19] MEDS ORDERED: SUGAMMADEX SODIUM 200 MG/2 ML SDV IV ONE (06:52)
[2023-11-19] MEDS ORDERED: MIDAZOLAM 2 MG/2 ML VIAL ONE (06:52)
[2023-11-19] MEDS ORDERED: ETOMIDATE 2 MG/ML 10 ML VIAL ONE (06:52)
[2023-11-19] MEDS ORDERED: ROPIVACAINE 5 MG/ML 30 ML VIAL ONE (06:52)
[2023-11-19] MEDS ORDERED: LIDOCAINE 1% INJ 10MG/ML (20 ML MDV) ONE (06:52)
[2023-11-19] MEDS ORDERED: DEXAMETHASONE SOD PHOSPHATE 4 MG/ML 1 ML VIAL ONE (06:52)
[2023-11-19] MEDS ORDERED: fentaNYL (PF) 50 MCG/ML 2 ML AMP ONE (06:52)
[2023-11-19] MEDS: ceFAZolin 1,000 MG in SODIUM CHLORIDE 0.9% 1,000 ML IRRIGATION ONE (07:00)
[2023-11-19] MEDS ORDERED: MIDAZOLAM 2 MG/2 ML VIAL IV PRN (07:00)
--- NOTE | 2023-11-19 08:13 | P.OP ---
Date of Procedure: 11/19/23 Preoperative Diagnosis: severe osteoarthritis right knee Postoperative Diagnosis: severe osteoarthritis right knee Procedure(s) Performed: right total knee arthroplasty Implants: Munoz [employer] Nephew Journey II CR Oxinium cruciate retaining femoral component size 7, right [employer] Journey nonporous tibial baseplate size 6, right [employer] Journey II, XLPE Deep Dished articular insert, size 10 mm, Size 5-6, right [employer] Journey Ade II resurfacing patellar component, oval, 35 mm All components were cemented using Palacos R bone cement The articulation is Oxinium on polyethylene Anesthesia: FARHEEN Surgeon: Chidi Dickens Ball Mill Mixer #1: Latoya Agarwal Estimated Blood Loss (ml): 50 Pathology: none sent Condition: stable Disposition: PACU Indications for Procedure: The patient's knee is end-stage, and conservative management has failed. The operation of knee replacement has been discussed at length in the office, as well as potential risks and complications. These are inclusive of, but not limited to: Infection, bleeding, scarring, discomfort, stiffness, blood vessel and nerve damage, need for further surgery, failure to relieve symptoms, persistence, recurrence, or worsening of problems, loosening, dislocation, wear, blood clot, pulmonary embolism, , gait dysfunction, stiffness, and other risks as discussed in the office. Patient elects to proceed and the consent form has been signed. Operative Findings: the operative findings are consistent with severe osteoarthritis of the right knee Description of Procedure: The patient was seen in the preoperative area, the consent was reviewed and the operative site was marked with a skin marker. The patient verified the procedure and the operative site. An adductor canal pain catheter and an iPACK block were placed by anesthesia in the preoperative area. The patient was then brought to the operating room and positioned on the operating room table in the supine position. Preoperative antibiotics and a gram of tranexamic acid were given intravenously. A general anesthetic was administered by the anesthesia department. Care was taken to make sure that all pressure points were adequately padded. A tourniquet was placed on the upper thigh and the lower extremity was prepped with ChloraPrep and draped in usual sterile fashion. A universal time-out was then performed which confirmed the patient's name, surgical site, ALLERGIES, and consent. The lower extremity was then exsanguinated and tourniquet was inflated to 250 mmHg. A standard anterior midline approach to the knee was performed. The skin and subcutaneous tissue were sharply dissected down to the patellar tendon. A medial parapatellar arthrotomy was then performed. The knee was then extended, the patellar was everted, and the knee was flexed. The infra-patellar fat pad was removed in order to enhance exposure. The anterior horns of both menisci were excised, and a release was performed to the posterior medial aspect of the knee. On gross visual inspection, there was complete loss of articular cartilage in the medial and patellofemoral joint spaces. There was also significant cartilage damage in the lateral compartment. There were multiple periarticular osteophytes globally about the knee which were then removed with a Ronguer. The femoral canal was then opened with the 9.5 mm intramedullary drill. The 8 mm intramedullary sarah was then inserted into the femoral canal with the distal femoral cutting guide set for 5 of valgus. The distal femoral cutting block was then pinned in place. The intramedullary sarah was then removed, and the distal femur was then cut. The cutting block was then removed and the cut was checked for symmetry. The resected bone was then measured to confirm the appropriate distal femoral resection. Next, the sizing guide was then placed and set for 3 external rotation based off of the epicondylar axis and [place]'s line. Pins were then placed and the drill holes, and the femur was sized with the sizing stylus. The pins were then removed, and the sizing guide was then removed. The spikes of the appropriate size femoral block was then placed into the predrilled holes, and malleted into place. Two 45 mm pins were then placed into the fixation holes on the cutting block. An robert wing was then used to ensure there would be no notching with the anterior cut. The anterior condyles were cut without notching. The anterior chord cut was then performed, followed by the posterior cut, posterior chamfer cut, and the anterior chamfer cut. The collateral ligaments were protected during the entire process. The cutting block was then removed. Any remaining bone and osteophytes were removed from the femur with a Ronguer. Attention was then directed to the tibia. The remaining ACL was removed with a Ronguer, and the tibia was then gently subluxed forward with a large bent knee retractor. Any remaining menisci were excised. The posterior lateral corner was cauterized in order to coagulate the lateral geniculate artery. The extra medullary tibial cutting guide was then placed, set for the appropriate rotation, slope, and depth of resection. The proximal tibia cutting guide was then pinned in place. Proximal tibia was then cut and sized. A curved osteotome was then used to remove any posterior osteophytes from the distal femur. The femoral trial was placed. A narrow saw blade was then used to remove the anterior intracondylar femoral bone. The CR notch trial was then placed. The tibial trial was placed with the appropriate-sized insert. The knee was able to fully extend and flex to 130 and was stable throughout all range of motion. The knee was then extended and the patella was everted. Patella was then measured, and then using an osteotomy guide, the patella was cut at the appropriate level. The patellar component was sized. The patellar drill guide was placed and the patella was drilled. The patella trial was then placed. The knee was then taken through range of motion with the patella trial and the patella tracked normally using the no thumbs technique. The patella trial was t hen removed. The knee was then flexed and lug holes were drilled through the femoral trial and the femoral trial was then removed. The tibial was then re- exposed, and the tibial broach guide was then pinned in place after it was set for the appropriate rotation to allow for the most coverage without overhang. The tibia was then reamed and broached. The femoral canal was plugged with autologous bone. The cut surfaces of bone were then irrigated with pulsatile lavage. The knee was also irrigated with Irrisept solution. The components were then opened, the cement was mixed. Cement was placed on the backside of the femoral, tibial, and patellar components. Cement was then applied to the tibial surface and pressurized into the surface using finger pressurization technique. The tibial component was then applied and excess cement was removed after it was impacted securely noted to be flush with the cut surface. In similar fashion, the cement was applied to the cut femoral surface, pressurized and using finger pressurization the component was impacted in place. Excess cement was removed. The polyethylene spacer was then implanted and locked into position. Patellar component was then applied in a similar technique and the patellar clamp was used to hold patella in place while the cement hardened. The knee was held in full extension while the cement hardened. Once the cement had fully hardened, the knee was reinspected. Any other cement extrusion was removed the final range of motion testing showed range of motion from 0-130 with excellent stability, both medial and laterally and appropriate alignment of the leg. Patella tracked normally. After the cemented hardened, the tourniquet was released and hemostasis was obtained. A second gram of transexamic acid was given intravenously. The knee was again irrigated. The knee was again taken through range of motion and found to be stable throughout all range of motion of 0-130, and the patella tracked normally. The fascia was then closed with 0 Vicryl followed by #2 strata fix suture. The subcutaneous tissue was closed with 3-0 Vicryl and 3-0 strata fix. Exofin glue was used for the skin and placed with the knee in flexion. After the glue had dried, and Optafoam silver impregnated dressing was applied. A lightly compressive dressing was applied using web roll and Umer wrap. Patient was then transferred to the stretcher and taken to recovery room in stable condition. Sponge and needle counts were correct. The floral assistant THIAGO Lester was required due the complexity surgery and the need for a skilled surgical product sales consultant. She assisted in positioning, draping, retraction, and closure of the wound.
[2023-11-19] MEDS ORDERED: NALOXONE 0.4 MG/ML 1 ML VIAL IV PRN (08:39)
[2023-11-19] MEDS ORDERED: MAGNESIUM HYDROXIDE 2,400 MG/30 ML CUP PO PRN (08:39)
[2023-11-19] MEDS ORDERED: HYDROmorphone 0.5 MG/0.5 ML SYRINGE IVP PRN ×3 (08:39)
[2023-11-19] MEDS ORDERED: ONDANSETRON 4 MG/2 ML VIAL IVP PRN (08:39)
[2023-11-19] MEDS ORDERED: HYDROcodone/APAP 7.5-325MG 1 EACH TAB PO PRN (08:40)
[2023-11-19] MEDS ORDERED: SODIUM CHLORIDE 0.9% 1,000 ML IV SCH (08:45)
[2023-11-19] MEDS: ROPIVACAINE 1,100 MG, SODIUM CHLORIDE 0.9% 500 ML 330 ML, EMPTY PAIN BALL 1 EACH MISCELLANE PRN (08:58)
[2023-11-19 09:14] VITALS: TEMP 97.2
[2023-11-19] MEDS: HYDROmorphone 0.5 MG/0.5 ML SYRINGE IVP PRN (09:18)
--- NOTE | 2023-11-19 09:34 | XR ---
EXAMINATION TYPE: XR knee limited RT DATE OF EXAM: 11/19/2023 8:59 AM CLINICAL INDICATION:Male, 68 years old with history of Evaluation for Postop abnormality and alignmen t; [facility] COMPARISON: None. TECHNIQUE: XR knee limited RT; examined in Frontal, lateral projections. FINDINGS: Status post total knee arthroplasty changes with hardware in appropriate alignment and in tact. No evidence of fracture. Subcutaneous lucencies and lucencies within the joint consistent with surgical changes. IMPRESSION: Status post total knee arthroplasty changes with hardware intact and appropriate alignment. No fractu res identified.
[2023-11-19] MEDS: HYDROcodone/APAP 7.5-325MG 1 EACH TAB PO PRN (10:04)
[2023-11-19 11:15] VITALS: BP 114/73; RESP 16
[2023-11-19] MEDS ORDERED: SENNOSIDES-DOCUSATE SODIUM 1 EACH TAB PO SCH (21:00)
== END 2023-11-19 12:02 | disposition home health service (06) ==
LOC: OR 05:34
PROVIDERS: ATTEND Orthopaedic Surgery
DX: M17.11 Unilateral primary osteoarthritis, right knee (principal); I10 Essential (primary) hypertension; E78.5 Hyperlipidemia, unspecified; I25.10 Atherosclerotic heart disease of native coronary artery without angina pectoris; Z95.5 Presence of coronary angioplasty implant and graft; Z95.0 Presence of cardiac pacemaker; Z79.01 Long term (current) use of anticoagulants; Z79.899 Other long term (current) drug therapy; Z90.49 Acquired absence of other specified parts of digestive tract
CPT/HCPCS: 97530; 97161; 64999; 64448; 73560; 27447; C1713; C1776; C1751; J2250; J1100; J0690 ×2; J2001; J3010; J2795; J1170; J2371